=== PATIENT | female | born 1975 | race Caucasian/White ===

== ENCOUNTER 2019-03-27 15:26 | Emergency (ER) | payer BC ==
[2019-03-27] MEDS ORDERED: Ondansetron 4 MG/2 ML SDV IVPUSH ONE (16:35)
[2019-03-27] MEDS ORDERED: Ketorolac 30 MG/ML SDV IVPUSH ONE (16:35)
--- NOTE | 2019-03-27 16:43 | EDM.PDOC ---
ED HPI GENERAL MEDICAL PROBLEM - General Chief Complaint: Fever Stated Complaint: BODY ACHES Time Seen by Provider: 03/27/19 15:39 Source of Information: Reports: Patient History Limitations: Reports: No Limitations - History of Present Illness INITIAL COMMENTS - FREE TEXT/NARRATIVE: Patient is a 43-year-old female who presents with complaints of body aches, fever, nausea, vomiting, and right-sided flank pain that began abruptly yesterday. she states that her temperature was as high as 103.5 yesterday. She does have a history of both bladder and kidney infections occurring without any urinary symptoms. She has been hospitalized in the past for pyelonephritis. She denies any diarrhea or abdominal pain. Generalized Pain Score (Numeric/FACES): 10 - Related Data Allergies Allergy/AdvReac Type Severity Reaction Status Date / Time Sulfa (Sulfonamide Allergy Vomiting Verified 03/27/19 15:38 Antibiotics) Home Meds: Home Meds DULoxetine [Cymbalta] 60 mg PO DAILY 03/27/19 [History] Gabapentin [Neurontin] 300 mg PO TID 03/27/19 [History] Omeprazole 40 mg PO DAILY 03/27/19 [History] Ondansetron [Zofran ODT] 4 mg PO Q6H PRN #10 tab.dis 03/27/19 [Rx] levoFLOXacin [Levaquin] 500 mg PO DAILY #7 tab 03/27/19 [Rx] traZODone HCl [Trazodone HCl] 100 mg PO DAILY 03/27/19 [History] Social & Family History - Tobacco Use Smoking Status *Q: Never Smoker ED ROS GENERAL - Review of Systems Review Of Systems: See Below Constitutional: Reports: Fever, Chills, Weakness, Other (generalized body aches) HEENT: Reports: No Symptoms Respiratory: Reports: No Symptoms. Denies: Shortness of Breath, Cough Cardiovascular: Reports: No Symptoms Endocrine: Reports: No Symptoms GI/Abdominal: Reports: Nausea, Vomiting. Denies: Abdominal Pain, Diarrhea : Reports: No Symptoms Musculoskeletal: Reports: Back Pain, Other (generalized body aches) Skin: Reports: No Symptoms Neurological: Reports: Headache. Denies: Dizziness Psychiatric: Reports: No Symptoms Hematologic/Lymphatic: Reports: No Symptoms Immunologic: Reports: No Symptoms ED EXAM, SEPSIS - Physical Exam Exam: See Below Exam Limited By: No Limitations General Appearance: Alert, WD/WN, Mild Distress Respiratory/Chest: No Respiratory Distress, Lungs Clear, Normal Breath Sounds, No Accessory Muscle Use, Chest Non-Tender Cardiovascular: Normal Peripheral Pulses, Regular Rate, Rhythm, No Edema, No Murmur GI/Abdominal Exam: Normal Bowel Sounds, Soft, Non-Tender, No Organomegaly, No Distention Back: Normal Inspection, CVA Tenderness (R) Neurological: Alert, Oriented, Normal Cognition Psychiatric: Normal Affect, Normal Mood Skin: Warm, Dry, Intact, Normal Color, No Rash Course - Vital Signs Last Recorded V/S: Last Vital Signs Temp 97.8 F 03/27/19 15:34 Pulse 107 H 03/27/19 15:34 Resp 16 03/27/19 15:34 BP 107/70 03/27/19 15:34 Pulse Ox 95 03/27/19 15:34 - Orders/Labs/Meds Orders: Active Orders 24 hr Category Date Time Status CULTURE URINE [RM] Stat Lab 03/27/19 17:45 Received Acetaminophen [Tylenol] Med 03/27/19 18:48 Once 975 mg PO NOW ONE Sodium Chloride 0.9% [Normal Saline] 1,000 ml Med 03/27/19 16:45 Active IV ASDIRECTED cefTRIAXone [Rocephin] 2 gm Med 03/27/19 18:15 Active Sodium Chloride 0.9% [Normal Saline] 100 ml IV Q24H Medication Orders Sodium Chloride (Normal Saline) 1,000 mls @ 999 mls/hr IV ASDIRECTED JAYE Last Admin: 03/27/19 16:44 Dose: 999 mls/hr Ceftriaxone Sodium 2 gm/ (Sodium Chloride) 100 mls @ 200 mls/hr IV Q24H COUNTS INCLUDE 234 BEDS AT THE [facility] Labs: Laboratory Tests 03/27/19 03/27/19 03/27/19 Range/Units 16:49 16:49 17:45 WBC 9.18 (3.98-10.04) K/mm3 RBC 4.47 (3.98-5.22) M/mm3 Hgb 13.2 (11.2-15.7) gm/dl Hct 38.9 (34.1-44.9) % MCV 87.0 (79.4-94.8) fl MCH 29.5 (25.6-32.2) pg MCHC 33.9 (32.2-35.5) g/dl RDW Std Deviation 38.4 (36.4-46.3) fL Plt Count 191 (182-369) K/mm3 MPV 8.7 L (9.4-12.3) fl Neut % (Auto) 68.7 (34.0-71.1) % Lymph % (Auto) 19.7 (19.3-51.7) % [place] % (Auto) 11.2 (4.7-12.5) % Eos % (Auto) 0.1 L (0.7-5.8) Baso % (Auto) 0.2 (0.1-1.2) % Neut # (Auto) 6.30 H (1.56-6.13) K/mm3 Lymph # (Auto) 1.81 (1.18-3.74) K/mm3 [place] # (Auto) 1.03 H (0.24-0.36) K/mm3 Eos # (Auto) 0.01 L (0.04-0.36) K/mm3 Baso # (Auto) 0.02 (0.01-0.08) K/mm3 Sodium 135 L (136-145) mEq/L Potassium 3.6 (3.5-5.1) mEq/L Chloride 99 (98-107) mEq/L Carbon Dioxide 25 (21-32) mEq/L Anion Gap 14.6 (5-15) BUN 11 (7-18) mg/dL Creatinine 0.9 (0.55-1.02) mg/dL Est Cr Clr Drug Dosing 77.01 mL/min Estimated GFR (MDRD) > 60 (>60) mL/min BUN/Creatinine Ratio 12.2 L (14-18) Glucose 86 (74-106) mg/dL Calcium 9.0 (8.5-10.1) mg/dL Total Bilirubin 0.6 (0.2-1.0) mg/dL AST 19 (15-37) U/L ALT 28 (14-59) U/L Alkaline Phosphatase 78 (46-116) U/L Total Protein 7.2 (6.4-8.2) g/dl Albumin 3.5 (3.4-5.0) g/dl Globulin 3.7 gm/dL Albumin/Globulin Ratio 1.0 (1-2) Urine Color Yellow (Yellow) Urine Appearance Slt cloudy H (Clear) Urine pH 6.0 (5.0-8.0) Ur Specific [place] 1.025 (1.005-1.030) Urine Protein Negative (Negative) Urine Glucose (UA) Negative (Negative) Urine Ketones 3+ H (Negative) Urine Occult Blood 2+ H (Negative) Urine Nitrite Negative (Negative) Urine Bilirubin 1+ H (Negative) Urine Urobilinogen 0.2 (0.2-1.0) Ur Leukocyte Esterase Trace H (Negative) Urine RBC 30-40 H (0-5) /hpf Urine WBC 10-20 H (0-5) /hpf Ur Squamous Epith Cells 5-10 H (0-5) /hpf Urine Bacteria Few (FEW) /hpf Urine Mucus Few (FEW) /hpf Meds: Medications Generic Name Dose Route Start Last Admin Trade Name Freq PRN Reason Stop Dose Admin Sodium Chloride 1,000 mls @ 999 mls/hr 03/27/19 16:45 03/27/19 16:44 Normal Saline IV 999 mls/hr ASDIRECTED JAYE Administration Ceftriaxone Sodium 2 gm/ 100 mls @ 200 mls/hr 03/27/19 18:15 Sodium Chloride IV Q24H JAYE Discontinued Medications Generic Name Dose Route Start Last Admin Trade Name Freq PRN Reason Stop Dose Admin Acetaminophen 975 mg 03/27/19 18:43 Tylenol PO 03/27/19 18:44 NOW ONE Ketorolac Tromethamine 30 mg 03/27/19 16:35 03/27/19 16:44 Toradol IVPUSH 03/27/19 16:36 30 mg ONETIME ONE Administration Ondansetron HCl 4 mg 03/27/19 16:35 03/27/19 16:44 Zofran IVPUSH 03/27/19 16:36 4 mg ONETIME ONE Administration - Re-Assessments/Exams Free Text/Narrative Re-Assessment/Exam: Patient is a 43-year-old female who presents with complaints of fever, body aches, nausea, vomiting, and right-sided flank pain that started yesterday. She states that she has a history of urinary tract infections and pyelonephritis with no urinary symptoms. I have ordered an a 1 L bolus of normal saline, Toradol 30 mg IV, Zofran 4 mg IV, CBC, CMP, and urinalysis. 03/27/19 18:21 Patient's CBC and CMP were grossly unremarkable. Her urine however did show 2+ occult blood trace leukocyte esterase, 30-40 RBCs and 10-20 WBCs. Based on the patient's clinical presentation as well as her positive urinalysis, we will treat this as an early pyelonephritis. Rocephin 2 g IV has been ordered. She will be discharged home on Levaquin 500 mg daily 1 week. We are unable to use Bactrim as she is allergic to sulfa. I will also send a prescription for Zofran ODT as needed for nausea. Discharge instructions as documented. Departure - Departure Time of Disposition: 18:50 Disposition: Home, Self-Care 01 Condition: Fair Clinical Impression: Pyelonephritis - Discharge Information *PRESCRIPTION DRUG MONITORING PROGRAM REVIEWED*: No *COPY OF PRESCRIPTION DRUG MONITORING REPORT IN PATIENT DEANNE: No Prescriptions: levoFLOXacin [Levaquin] 500 mg PO DAILY #7 tab Ondansetron [Zofran ODT] 4 mg PO Q6H PRN #10 tab.dis PRN Reason: Nausea/Vomiting Instructions: Pyelonephritis, Adult, [id number] Referrals: PCP,None [Primary Care Provider] - Forms: ED Department Discharge Additional Instructions: You were seen in the emergency department today with complaints of body aches, fever, nausea, vomiting, and back pain. Your blood work was negative. There is no signs of infection in your blood, however, your urinalysis was positive for urinary tract infection. Based on your symptoms and the results of her clinical workup, we are going to treat you for pyelonephritis. He received a dose of IV antibiotics in the ER. A prescription for Levaquin 500 mg daily for 7 days, was Zofran 4 mg under the tongue every 6 hours as needed for nausea has been sent to [facility] in [facility]. We also recommend that she will increase her fluid intake and get adequate rest. You may use [id number] Tylenol or ibuprofen as needed for any fever or body aches. Ensure that you do not exceed 4000 mg of Tylenol or 3200 mg of ibuprofen in a 24-hour period. If your symptoms should fail to improve over the next few days as expected, or you experience any new or worsening symptoms, please not hesitate to return to the emergency department. - My Orders Last 24 Hours: My Active Orders 03/27/19 16:45 Sodium Chloride 0.9% [Normal Saline] 1,000 ml IV ASDIRECTED 03/27/19 17:45 CULTURE URINE [RM] Stat 03/27/19 18:15 cefTRIAXone [Rocephin] 2 gm Sodium Chloride 0.9% [Normal Saline] 100 ml IV Q24H 03/27/19 18:48 Acetaminophen [Tylenol] 975 mg PO NOW ONE - Assessment/Plan Last 24 Hours: My Active Orders 03/27/19 16:45 Sodium Chloride 0.9% [Normal Saline] 1,000 ml IV ASDIRECTED 03/27/19 17:45 CULTURE URINE [RM] Stat 03/27/19 18:15 cefTRIAXone [Rocephin] 2 gm Sodium Chloride 0.9% [Normal Saline] 100 ml IV Q24H 03/27/19 18:48 Acetaminophen [Tylenol] 975 mg PO NOW ONE
[2019-03-27] MEDS ORDERED: Sodium Chloride 0.9% 1,000 ML IV SCH (16:45)
[2019-03-27] MEDS ORDERED: cefTRIAXone 2 GM in Sodium Chloride 0.9% 100 ML IV SCH (18:15)
[2019-03-27] MEDS ORDERED: Acetaminophen 325 MG Tab PO ONE ×2 (18:43→18:48)
== END 2019-03-27 19:24 | disposition home or self-care (01) ==
LOC: JD.ED 15:26
DX: N12 Tubulo-interstitial nephritis, not specified as acute or chronic (principal); Z88.2 Allergy status to sulfonamides; Z79.899 Other long term (current) drug therapy
CPT/HCPCS: 36415; 80053; 81001; 85025; 87086; 87088; 87186; 96361; 96365; 96375; 99283; A9270; J0696; J1885; J2405; J7030; J7050

== ENCOUNTER 2020-02-23 21:27 | Emergency (ER) | payer BC, OTHER ==
[2020-02-23] MEDS ORDERED: Haloperidol Lactate 5 MG/ML SDV IM ONE (22:08)
[2020-02-23] MEDS ORDERED: Benztropine 1 MG Tab PO STA (22:08)
[2020-02-23] MEDS ORDERED: Ketorolac 30 MG/ML SDV IVPUSH STA (22:09)
[2020-02-23] MEDS ORDERED: Ondansetron 4 MG/2 ML SDV IVPUSH ONE (22:09)
[2020-02-23] MEDS ORDERED: Sodium Chloride 0.9% 1,000 ML IV ONE (22:09)
--- NOTE | 2020-02-23 22:19 | EDM.PDOC ---
ED HPI GENERAL MEDICAL PROBLEM - General Chief Complaint: Headache Stated Complaint: NAUSEA HEADACHE Time Seen by Provider: 02/23/20 21:36 Source of Information: Reports: Patient History Limitations: Reports: No Limitations - History of Present Illness INITIAL COMMENTS - FREE TEXT/NARRATIVE: Ms. Olguin is a pleasant 44-year-old woman who now presents the ED with a headache, felt primarily to the left side of her head but radiating to the right side of her head, that has been waxing and waning for the past 3 weeks, but is worse today. She describes the pain as throbbing and sharp in character, and she also has a pressure sensation behind her left eye. She has had nausea, but no vomiting. No visual changes, although she does have photophobia and occasional phonophobia. She also reports occasional numbness to the left side of her face, but no tingling or numbness elsewhere. The patient states that she was diagnosed with migraines several years ago, and prescribed sumatriptan, which ordinarily works on her headaches. He states that she took sumatriptan about 3 weeks ago, when this current headache began, which only dulls the pain, and she states that she has not taken any sumatriptan since. The patient also reports that there is a concern that she may have a pituitary prolactinoma, because she has had unexplained . Her PCP recommended an MRI of her head several months ago, which she has not yet undergone. The last imaging study of her head that she underwent was a CT of her head around 2012, which was unremarkable. Here in the ED, the patient is found to be hemodynamically stable, afebrile, saturating 100% on room air. Prior to 3 weeks ago, the patient denies having a recent fever, chills, sore throat, ear pain, nasal or sinus congestion, cough, dyspnea, chest pain, palpitations, nausea, vomiting, constipation, diarrhea, abdominal pain, urinary symptoms, recent weight gain or weight loss, recent bloody bowel movements or black bowel movements, recent joint aches, headaches, or rashes. Patient's PCP is FELICIANO Menchaca. She has not received an influenza vaccine this season, but agreed to receive one here [facility]. Headache Pain Score (Numeric/FACES): 9 - Related Data Allergies Allergy/AdvReac Type Severity Reaction Status Date / Time Fish Containing Products Allergy Vomiting Verified 02/23/20 21:48 Sulfa (Sulfonamide Allergy Vomiting Verified 02/23/20 21:40 Antibiotics) Home Meds: Home Meds DULoxetine [Cymbalta] 60 mg PO DAILY 03/27/19 [History] Gabapentin [Neurontin] 300 mg PO TID 03/27/19 [History] Omeprazole 40 mg PO DAILY 03/27/19 [History] traZODone HCl [Trazodone HCl] 100 mg PO BEDTIME 03/27/19 [History] Acetaminophen [Tylenol] 650 mg PO Q4HR PRN 02/23/20 [History] Ibuprofen [Advil] 600 mg PO Q6HR PRN 02/23/20 [History] Rizatriptan Benzoate [Rizatriptan] 1 tab PO Q2H PRN #3 tab.rapdis 02/24/20 [Rx] Past Medical History HEENT History: Reports: Impaired Vision (wears glasses) Gastrointestinal History: Reports: Other (See Below) (Eosinophilic esophagitis) Neurological History: Reports: Migraines Psychiatric History: Reports: Depression, Other (See Below) (Fibromyalgia) - Past Surgical History HEENT Surgical History: Reports: Oral Surgery (dental extractions) GI Surgical History: Reports: Cholecystectomy (around 2011) Female Surgical History: Reports: Section (x 1), Hysterectomy (partial) Social & Family History - Family History Family Medical History: Noncontributory - Tobacco Use Tobacco Use Status *Q: Never Tobacco User Tobacco Use Within Last Twelve Months: Vaping (nicotine, on occasion) - Caffeine Use Caffeine Use: Reports: Coffee, Soda - Alcohol Use Alcohol Use History: Yes Alcohol Use Frequency: Rarely - Recreational Drug Use Recreational Drug Use: No - Living Situation & Occupation Living situation: Reports: , with Family (Sister) Occupation: Employed (tax associate attorney) ED ROS GENERAL - Review of Systems Review Of Systems: Comprehensive ROS is negative, except as noted in HPI. - Physical Exam Exam: See Below Exam Limited By: No Limitations General Appearance: Alert, WD/WN, Mild Distress (appears uncomfortable) Eye Exam: Bilateral Eye: EOMI, Normal Inspection, PERRL Ears: Normal External Exam, Normal Canal, Hearing Grossly Normal, Normal TMs Nose: Normal Inspection, Normal Mucosa, No Blood Throat/Mouth: Normal Inspection, Normal Lips, Normal Teeth, Normal Gums, Normal Oropharynx, Normal Voice, No Airway Compromise Head Exam: Atraumatic, Normocephalic Neck: Normal Inspection, Supple, Non-Tender, Full Range of Motion. No: Lymphadenopathy (L), Lymphadenopathy (R) Respiratory/Chest: No Respiratory Distress, Lungs Clear, Normal Breath Sounds, No Accessory Muscle Use Cardiovascular: Normal Peripheral Pulses, Regular Rate, Rhythm, No Edema, No Gallop, No JVD, No Murmur, No Rub GI/Abdominal: Normal Bowel Sounds, Soft, Non-Tender, No Organomegaly, No Distention, No Abnormal Bruit, No Mass Neuro Exam (Abbreviated): Alert, Oriented, CN II-XII Intact, Normal Cognition, No Motor/Sensory Deficits Back Exam: Normal Inspection, Full Range of Motion, NT Extremities: Normal Inspection, Normal Range of Motion, No Pedal Edema, Normal Capillary Refill Psychiatric: Flat Affect Skin Exam: Warm, Dry, Intact, Normal Color, No Rash Course - Vital Signs Last Recorded V/S: Last Vital Signs Temp 36.4 C 02/23/20 21:36 Pulse 96 02/23/20 21:36 Resp 14 02/23/20 21:36 BP 98/68 02/23/20 21:36 Pulse Ox 100 02/23/20 21:36 - Orders/Labs/Meds Orders: Active Orders 24 hr Category Date Time Status Influenza Vaccine Charge [RC] .DISCHARGE Care 02/23/20 22:10 Active Head wo Cont [CT] Stat Exams 02/23/20 22:08 Taken Meds: Medications Discontinued Medications Generic Name Dose Route Start Last Admin Trade Name Freq PRN Reason Stop Dose Admin Acetaminophen/Butalbital/Caffeine 1 tab 02/23/20 23:51 02/24/20 00:00 Fioricet 325-50-40 Mg PO 02/23/20 23:52 1 tab ONETIME ONE Administration Benztropine Mesylate 1 mg 02/23/20 22:08 02/23/20 22:25 Cogentin PO 02/23/20 22:09 1 mg ONETIME STA Administration Haloperidol Lactate 5 mg 02/23/20 22:08 02/23/20 22:23 Haldol IM 02/23/20 22:09 5 mg ONETIME ONE Administration Sodium Chloride 1,000 mls @ 999 mls/hr 02/23/20 22:09 02/23/20 22:20 Normal Saline IV 02/23/20 23:09 999 mls/hr ONETIME ONE Administration Influenza Virus Vaccine 1 each 02/23/20 22:10 Pharmacy To Dose - Influenza Vaccine IM 02/23/20 22:11 ONETIME ONE Influenza Virus Vaccine 60 mcg 02/23/20 22:30 02/24/20 00:06 Fluzone Quad [id number] Syringe IM 02/23/20 22:31 60 mcg .ONCE ONE Administration Ketorolac Tromethamine 30 mg 02/23/20 22:09 02/23/20 22:22 Toradol IVPUSH 02/23/20 22:10 30 mg ONETIME STA Administration Ondansetron HCl 4 mg 02/23/20 22:09 02/23/20 22:21 Zofran IVPUSH 02/23/20 22:10 4 mg ONETIME ONE Administration - Re-Assessments/Exams Free Text/Narrative Re-Assessment/Exam: 02/23/20 22:11 As above, the patient has had a headache, felt primarily to the left side of her head but radiating to the right side of her head, waxing and waning for the past 3 weeks, associated with nausea and photophobia. She states that she has a history of migraines, ordinarily with sumatriptan, and while she states that she took some sumatriptan about 3 weeks ago, which dulled her pain, she has not taken any since, and she feels that this headache is different than her usual migraine. Her neurologic examination is completely normal, however, she also tells me that there is a concern that she has a pituitary adenoma, as she has had an issue with . I have ordered a CT of the head without contrast, aware that a CT will not find a pituitary adenoma, but to look for increased intracranial pressure. In the meantime, the patient will be treated with IM Haldol, oral Cogentin, IV Zofran, IV Toradol, and IV fluid. She will also be given a tetanus vaccination prior to discharge. 02/23/20 23:22 CT of the head without contrast is read by the read as "No acute intracranial abnormality." 02/23/20 23:51 CT results discussed with the patient. She states that her headache is improved somewhat, down from a 9/10 to a 5/10 or 6/10. I ordered a single tablet of Fioricet to see if we can reduce the headache a bit further. 02/24/20 01:12 The patient states that she is feeling well enough to go home. I will discharge her home with a prescription for rizatriptan. The patient will be given an influenza vaccine prior to discharge. Departure - Departure Time of Disposition: 01:12 Disposition: Home, Self-Care 01 Condition: Good Clinical Impression: Migraine headache - Discharge Information *PRESCRIPTION DRUG MONITORING PROGRAM REVIEWED*: Not Applicable *COPY OF PRESCRIPTION DRUG MONITORING REPORT IN PATIENT DEANNE: Not Applicable Prescriptions: Rizatriptan Benzoate [Rizatriptan] 1 tab PO Q2H PRN #3 tab.rapdis PRN Reason: Headache Referrals: Roseanne Saab PA-C [Primary Care Provider] - Forms: ED Department Discharge Additional Instructions: You were seen in the emergency room after experiencing a migraine headache for the past 3 weeks. Work-up in the ER included a CT of her head, which found no abnormalities. Your symptoms improved after you were given a neuroleptic medication. We recommend that you stay adequately hydrated and get plenty of rest in a dark, quiet place. A prescription for the anti-migraine medicine rizatriptan (Maxalt) has been sent to the [facility], located in the [facility] grocery store. You may dissolve 1 tablet of rizatriptan in your mouth, like a lozenge, at the earliest sign of a migraine headache. You may repeat after 2 hours, if necessary, up to 3 tablets within a 24-hour period. If rizatriptan works for you, talk to your PCP, FELICIANO Menchaca, about getting an additional prescription for it. If any other problems, please do not hesitate to return to the ER. You were given an influenza vaccine during your ER visit. Sepsis Event Note (ED) - Evaluation Sepsis Screening Result: No Definite Risk - Focused Exam Vital Signs: Vital Signs Temp Pulse Resp BP Pulse Ox 02/23/20 21:36 36.4 C 96 14 98/68 100 - My Orders Last 24 Hours: My Active Orders 02/23/20 22:08 Head wo Cont [CT] Stat 02/23/20 22:10 Influenza Vaccine Charge [RC] .DISCHARGE - Assessment/Plan Last 24 Hours: My Active Orders 02/23/20 22:08 Head wo Cont [CT] Stat 02/23/20 22:10 Influenza Vaccine Charge [RC] .DISCHARGE
[2020-02-23] MEDS ORDERED: FLU VACC QS2020-21(6MOS UP)/PF 60 MCG/0.5 ML SYRINGE IM ONE (22:30)
[2020-02-23] MEDS ORDERED: Acetaminophen/Butalbital/Caffeine 325-50-40 MG Tab PO ONE (23:51)
--- NOTE | 2020-02-24 08:46 | CT ---
PROCEDURE INFORMATION: Exam: CT Head Without Contrast Exam date and time: 02/23/2020 11:32 PM Age: 44 years old Clinical indication: Pain; Headache; Migraine; Aura effect not specified TECHNIQUE: Imaging protocol: Computed tomography of the head without contrast. Radiation optimization: All CT scans at this facility use at least one of these dose optimization techniques: automated exposure control; mA and/or kV adjustment per patient size (includes targeted exams where dose is matched to clinical indication); or iterative reconstruction. COMPARISON: No relevant prior studies available. FINDINGS: Brain: Normal. No hemorrhage. Unremarkable white matter. No mass effect. Cerebral ventricles: No ventriculomegaly. Bones/joints: Unremarkable. No acute fracture. Paranasal sinuses: Visualized sinuses are unremarkable. No fluid levels. Mastoid air cells: Visualized mastoid air cells are well aerated. Soft tissues: Unremarkable. IMPRESSION: No acute intracranial abnormality. Thank you for allowing us to participate in the care of your patient. Dictated and Authenticated by: Scout Clement MD 02/23/2020 11:55 PM Central Time ([place] & [place]) [facility]
== END 2020-02-24 01:37 | disposition home or self-care (01) ==
LOC: JD.ED 21:27
DX: G43.909 Migraine, unspecified, not intractable, without status migrainosus (principal); R11.0 Nausea; F32.9 Major depressive disorder, single episode, unspecified; F17.290 Nicotine dependence, other tobacco product, uncomplicated; Z91.013 Allergy to seafood; Z88.2 Allergy status to sulfonamides; Z79.899 Other long term (current) drug therapy
CPT/HCPCS: 70450; 90471; 90686; 96372; 96374; 96375; 99283; A9270; J1630; J1885; J2405; J7030; 99284; G0008

== ENCOUNTER 2023-01-30 05:41 | Emergency (ER) | payer BC, OTHER ==
[2023-01-30] MEDS ORDERED: Ondansetron 4 MG/2 ML SDV IVPUSH ONE (06:07)
[2023-01-30] MEDS ORDERED: Sodium Chloride 0.9% 10 ML Syringe FLUSH PRN (06:07)
[2023-01-30] MEDS ORDERED: Sodium Chloride 0.9% 1,000 ML IV STA (06:07)
[2023-01-30 06:34] LABS: BASOPHILS ABSOLUTE AUTO 0.1 K/mm3 (0.0-0.2); BASOPHILS PERCENT AUTO 0.9 % (0.0-1.0); EOSINOPHILS ABSOLUTE AUTO 0.1 K/mm3 (0.0-0.4); EOSINOPHILS PERCENT AUTO 1.2 % (0.0-6.0); HEMATOCRIT 44.1 % (37.0-47.0); HEMOGLOBIN 15.5 gm/dl (12.0-16.0); IMMATURE GRAN ABSOLUTE AUTO 0.02 K/mm3 (0.00-0.05); IMMATURE GRAN PERCENT AUTO 0.2 % (0.0-0.4); LYMPHOCYTES ABSOLUTE AUTO 3.4 K/mm3 (1.0-4.8); LYMPHOCYTES PERCENT AUTO 41.9 % (24.0-44.0); MEAN CORPUSCULAR HEMOGLOBIN 31.8 pg (28.0-32.0); MEAN CORPUSCULAR HGB CONC 35.1 g/dl (32.0-36.0); MEAN CORPUSCULAR VOLUME 90.4 fl (83.0-99.0); MEAN PLATELET VOLUME 8.4 fl (9.4-12.3); MONOCYTES ABSOLUTE AUTO 0.8 K/mm3 (0.0-0.8); MONOCYTES PERCENT AUTO 10.4 % (0.0-8.0); NEUTROPHILS ABSOLUTE AUTO 3.6 K/mm3 (1.8-7.7); NEUTROPHILS PERCENT AUTO 45.4 % (41.0-71.0); PLATELET COUNT,PLT 205 K/mm3 (150-400); RED BLOOD CELL COUNT 4.88 M/mm3 (4.10-5.30); WHITE BLOOD CELL COUNT,WBC 8.01 K/mm3 (3.9-11.3)
[2023-01-30 07:00] LABS: A/G RATIO 1.1 (1-2); ANION GAP 12.7 (5-15); BILIRUBIN TOTAL 0.3 mg/dL (0.2-1.0); BUN/CREATININE RATIO 17.8 (14-18); CREATININE 0.9 mg/dL (0.55-1.02); EST CRCL DRUG DOSING (CG) 73.9 mL/min; MAGNESIUM 1.7 mg/dL (1.8-2.4); POTASSIUM,K 3.7 mEq/L (3.5-5.1); PROTEIN TOTAL,TP 7.6 g/dl (6.4-8.2)
[2023-01-30 08:00] LABS: CORONAVIRUS COVID-19 NAA NEGATIVE (NEGATIVE); INFLUENZA A NAA NEGATIVE (NEGATIVE); RESPIRATORY SYNCYTIAL VIR NAA NEGATIVE (NEGATIVE)
[2023-01-30] MEDS ORDERED: Metoclopramide 10 MG/2 ML SDV IVPUSH ONE (08:11)
[2023-01-30] MEDS ORDERED: diphenhydrAMINE 50 MG/ML SDV IVPUSH ONE (08:11)
== END 2023-01-30 08:49 | disposition home or self-care (01) ==
LOC: JD.ED 05:41
DX: A08.4 Viral intestinal infection, unspecified (principal); M79.7 Fibromyalgia; F17.210 Nicotine dependence, cigarettes, uncomplicated; Z79.899 Other long term (current) drug therapy; Z88.2 Allergy status to sulfonamides; Z91.018 Allergy to other foods
CPT/HCPCS: 0241U; 36415; 80053; 83690; 83735; 85025; 86140; 96361; 96374; 96375; 99284; J1200; J2405; J2765; J3490; J7030